=== PATIENT | female | born 1980 | race Caucasian/White ===

== ENCOUNTER 2019-08-25 10:24 | Outpatient (CLI) | payer OTHER, SELFPAY ==
--- NOTE | ~2019-08-25 | US_ITS ---
EXAMINATION: US abdomen complete DATE: 08/25/2019 11:36 INDICATION: Generalized abdominal tenderness. TECHNIQUE: Multiple grayscale and Doppler ultrasound images of the abdomen were obtained. COMPARISON: None FINDINGS: Abdominal aorta is normal in caliber. Inferior vena cava is normal. The visualized portions of the head and body of pancreas are normal. The liver is normal without focal lesion. There is norm al flow in main portal vein. The gallbladder is normal in size and contains gallstones. No gallbladde r wall thickening. There was a positive sonographic Balderas sign. The common duct is normal and measur es 4 mm. The kidneys are normal in size. The spleen is normal in size. IMPRESSION: 1. Cholelithiasis and positive sonographic Balderas sign, but no gallbladder wall thickening or gallbla dder distention to suggest acute cholecystitis. Reviewed, dictated and finalized at location A. IMPRESSION: 1. Cholelithiasis and positive sonographic Balderas sign, but no gallbladder wall thickening or gallbladder distention to suggest acute cholecystitis.
[2019-08-25 10:40] LABS: Basophils Absolute Auto 0.02 K/mm3 (0.00-0.10); Basophils Percent Auto 0.4 % (0.0-1.0); Eosinophils Absolute Auto 0.11 K/mm3 (0.02-0.50); Hematocrit 39.1 % (35.0-49.0); Hemoglobin 12.5 g/dL (12.0-15.0); Immature Granulocyte Absolute 0.01 K/mm3 (0.00-0.00); Immature Granulocyte Percent A 0.2 % (0.0-0.0); Lymphocytes Absolute Auto 2.61 K/mm3 (1.10-4.50); Lymphocytes Percent Auto 47.5 % (18.0-42.0); Mean Corpuscular Volume 81.5 fL (78.0-102.0); Mean Platelet Volume 10.3 fl (9.2-11.8); Monocytes Absolute Auto 0.27 K/mm3 (0.10-0.90); Monocytes Percent Auto 4.9 % (2.0-11.0); Neutrophils Absolute Auto 2.5 K/mm3 (1.7-7.2); Platelet Count Result 207 K/mm3 (150-420); Red Cell Distribution Width 14.6 % (11.6-14.4); White Blood Count 5.5 K/mm3 (4.8-10.8)
[2019-08-25 10:42] LABS: Add Urine Microscopic? NO; Appearance Urine Clear (Clear); Bilirubin Urine Negative (Negative); Blood Urine Negative (Negative); Color Urine Yellow (Yellow); Glucose Urine UA Negative (Negative); Ketones Urine Negative (Negative); Leukocyte Esterase Ur Negative (Negative); Nitrate Urine Negative (Negative); Protein Urine Negative (Negative); pH Urine 6.5 (5.0-8.0)
[2019-08-25 10:45] LABS: Urine Pregnancy Test Negative
[2019-08-25 10:46] LABS: Pregnancy On Board Control Positive
[2019-08-25 10:56] LABS: Alanine Aminotransferase 17 U/L (14-59); Albumin Level 3.8 g/dL (3.4-5.0); Alkaline Phosphatase 67 U/L (46-116); Amylase 59 U/L (25-115); Anion Gap 10.7 mmol/L (7-16); Aspartate Amino Transferase 12 U/L (15-37); Bilirubin,Total 0.3 mg/dL (0.00-1.00); Blood Urea Nitrogen 8 mg/dL (7-18); Calcium 8.6 mg/dL (8.5-10.1); Carbon Dioxide 29 mmol/L (21-32); Chloride 106 mmol/L (98-108); Estimated Glomerular Filt Rate > 60; Glucose 95 mg/dL (70-99); Lipase 116 U/L (73-393); Osmolality Calculated 292 mOsm/kg (285-295); Potassium 3.7 mmol/L (3.5-5.1); Sodium 142 mmol/L (136-145)
== END 2019-08-25 10:25 | disposition home or self-care (01) ==
PROVIDERS: PCP Family Medicine; Visit Provider Family Medicine
DX: R10.817 Generalized abdominal tenderness (principal)
CPT/HCPCS: 36415; 76700; 80053; 81003; 81025; 82150; 83690; 85025

== ENCOUNTER 2019-11-10 06:57 | Emergency (ER) | payer OTHER, SELFPAY ==
--- NOTE | ~2019-11-10 | US_ITS ---
EXAMINATION: US right upper quadrant DATE: 11/10/2019 09:39 INDICATION: Pancreatitis. Epigastric abdominal pain. TECHNIQUE: Multiple grayscale and Doppler images of the abdomen right upper quadrant were obtained (b y a technologist who performed the scan) and subsequently reviewed. Comparison is made to prior exami nation from 08/25/2019. FINDINGS: The pancreatic head and body are normal in appearance. The pancreatic tail is not visualized. Please note uncomplicated pancreatitis typically does not have ultrasound findings. The liver has normal ec hogenicity and contour. There are no focal liver lesions identified. There is no evidence of intra hepatic biliary duct dilation. Portal venous flow was seen in the hepatopedal, normal direction and has normal Doppler waveform. No right-sided hydronephrosis. Common bile duct measures 6 mm, which is normal. The gallbladder wall is normal in thickness, with ex pected amount of distention. No sonographic evidence of pericholecystic fluid. There is cholelithia sis. Technologist performing exam reports patient did not demonstrate sonographic Balderas's sign. P paulina note that this sign is less reliable in patients who have received pain medication. IMPRESSION: 1. Cholelithiasis. Reviewed, dictated and finalized at location A. IMPRESSION: 1. Cholelithiasis.
[2019-11-10 07:13] VITALS: BP 146/75; PULSE 74; RESP 20; TEMP 36.5; O2SAT 100
--- NOTE | 2019-11-10 07:19 | ECG_ITS ---
Measurements Intervals [place] Rate: 56 P: -11 [place]: 149 QRS: 16 QRSD: 105 T: 27 QT: 440 QTc: 427 Interpretive Statements SINUS BRADYCARDIA BORDERLINE ECG Electronically Signed On 11-10-2019 8:48:00 CDT by Alexander Deleon D.O.
--- NOTE | 2019-11-10 07:19 | ED.ABDPAIN ---
HPI - Abdominal Pain General Chief Complaint: Abdominal Pain Stated Complaint: body aches vomitting Time Seen by Provider: 11/10/19 07:19 Source: patient Mode of arrival: ambulatory Limitations: no limitations History of Present Illness HPI narrative: 39-year-old woman comes in today complaining 5 days of postprandial nausea, vomiting and epigastric pain. Between episodes she is pain-free. She states the pain starts about 1/2 hour after she eats or drinks, even coffee. She denies diarrhea, black stools, bloody stools, dysuria, hematuria, and fever. Patient states that she has had no blood in her vomitus. She has been able to keep anything down for the last several days. She states that she was seen by her doctor few months ago and told that she had gallstones. She denies NSAID use. MD elicited complaint: abdominal pain Pertinent past history: other ( Gallstones) Onset (ago): day(s) (5) Pain Consistency: intermittent Location: epigastric Severity: severe Quality: sharp Radiation: none Migration to: no migration Exacerbating factors: eating Relieving factors: nothing Associated symptoms: nausea and vomiting Treatments prior to arrival: other ( Tylenol) Related Data Date of Last Menstrual Period: 11/10/19 Home Medications Medication Instructions Recorded Confirmed No Home Medications 11/10/19 11/10/19 Allergies Allergy/AdvReac Type Severity Reaction Status Date / Time codeine Allergy Mild Verified 12/04/12 15:31 Review of Systems Constitutional: Constitutional: Denies chills, Denies fever(s) and Denies weakness Eyes: Eyes: Denies change in vision and Denies photophobia ENT: Denies dysphagia, Denies nasal congestion and Reports sore throat Cardiovascular: Cardiovascular: Denies chest pain and Denies radiating jaw, neck or arm pain Respiratory: Respiratory: Denies cough, Denies dyspnea and Denies wheezing Gastrointestinal: Gastrointestinal: Reports as per HPI Genitourinary: Genitourinary: Denies hematuria, Denies nocturia and Denies dysuria Musculoskeletal: Musculoskeletal: Denies arthralgias and Denies joint swelling Integumentary/Breasts: Skin/Breast: Denies pruritus, Denies erythema and Denies rash Neurologic: Denies vertigo, Denies dizziness and Denies syncope Psychiatric: Psychiatric: Denies anxiety and Denies depression Endocrine: Endocrine: Denies polydipsia and Denies polyuria Hematologic/Lymphatic: Hematologic/Lymphatic: Denies easy bleeding and Denies easy bruising Allergic/Immunologic: Allergic/Immunologic: Denies lip swelling and Denies wheezing [facility] Social History Social History Smoking status: Current every day smoker Alcohol intake: never Substance use: never Living arrangements: with family Exam Const: General: healthy appearing, no acute distress and alert Orientation/consciousness: patient oriented x3 Limitations: no limitations HENMT: Head: normal to inspection Ears: external ears normal, TM's normal bilaterally and EAC's normal Mouth: Yes moist mucous membranes Throat: posterior oropharynx normal Eyes: Conjunctivae: conjunctivae normal Pupils: Equal, round and reactive pupils present EOM: EOMs intact bilaterally Neck: Neck: normal visual inspection and no lymphadenopathy Resp: Effort & Inspection: normal respiratory effort and not labored Auscultation: clear to auscultation bilaterally, no rales, no rhonchi and no wheezes Cardio: Rate: regular rate Rhythm: regular rhythm Heart sounds: no murmurs GI: Inspection: non-distended GI Palp: Yes Soft to palpation, No Tenderness to palpation present (GI), No Guarding due to palpation present (GI), No Rigid due to palpation and No Palpable mass present Auscultation: normal bowel sounds Skin: General skin exam: normal color, no jaundice and no pallor Rashes: no rashes Neuro: General: patient oriented x3, moves all extremities, no focal motor deficits and
[2019-11-10 07:39] LABS: Basophils Absolute Auto 0.02 K/mm3 (0.00-0.10); Basophils Percent Auto 0.4 % (0.0-1.0); Eosinophils Absolute Auto 0.07 K/mm3 (0.02-0.50); Eosinophils Percent Auto 1.6 % (1.0-6.0); Hematocrit 37.3 % (35.0-49.0); Hemoglobin 11.7 g/dL (12.0-15.0); Immature Granulocyte Absolute 0.01 K/mm3 (0.00-0.00); Immature Granulocyte Percent A 0.2 % (0.0-0.0); Lymphocytes Absolute Auto 2.11 K/mm3 (1.10-4.50); Mean Corpuscular HGB Conc 31.4 g/dL (32.0-36.0); Mean Corpuscular Hemoglobin 25.6 pg (27.0-31.0); Mean Corpuscular Volume 81.6 fL (78.0-102.0); Mean Platelet Volume 10.3 fl (9.2-11.8); Monocytes Absolute Auto 0.23 K/mm3 (0.10-0.90); Monocytes Percent Auto 5.1 % (2.0-11.0); Neutrophils Absolute Auto 2.1 K/mm3 (1.7-7.2); Neutrophils Percent Auto 45.7 % (50.0-70.0); Platelet Count Result 224 K/mm3 (150-420); Red Blood Count 4.57 M/mm3 (4.20-5.40); Red Cell Distribution Width 15.5 % (11.6-14.4); White Blood Count 4.5 K/mm3 (4.8-10.8)
[2019-11-10 07:39] LABS: Add Urine Microscopic? YES; Appearance Urine Cloudy (Clear); Bilirubin Urine 1+ (Negative); Blood Urine 3+ (Negative); Color Urine Yellow (Yellow); Glucose Urine UA Negative (Negative); Ketones Urine 3+ (Negative); Leukocyte Esterase Ur Trace LEU/UL (Negative); Nitrate Urine Negative (Negative); Protein Urine 1+ (Negative); Specific Grav Ur >= 1.030 (1.010-1.020); pH Urine 5.5 (5.0-8.0)
[2019-11-10 07:44] LABS: Bacteria Urine 1+ /hpf; RBC Urine 51-75 /hpf (0-2); Squamous Epithelial Cell Urine Few /hpf (Few); WBC Urine 0-3 /hpf (0-3)
[2019-11-10] MEDS: SODIUM CHLORIDE 0.9% IV 1,000 ML 999 ML IV CONT (07:47)
[2019-11-10] MEDS: ONDANSETRON INJ 4 MG/2 ML VIAL IV PUSH (07:48)
[2019-11-10 07:52] LABS: Prothrombin Time 10.5 Seconds (9.64-11.0)
[2019-11-10 07:57] LABS: Lactic Acid Reflex 0.8 mmol/L (0.4-2.0)
[2019-11-10 08:01] LABS: Alanine Aminotransferase 375 U/L (14-59); Albumin Level 3.6 g/dL (3.4-5.0); Alkaline Phosphatase 234 U/L (46-116); Anion Gap 10.7 mmol/L (7-16); Aspartate Amino Transferase 120 U/L (15-37); Bilirubin,Total 0.7 mg/dL (0.00-1.00); Blood Urea Nitrogen 8 mg/dL (7-18); Calcium 8.4 mg/dL (8.5-10.1); Carbon Dioxide 28 mmol/L (21-32); Chloride 104 mmol/L (98-108); Estimated CRCL calculation 105 ml/min; Estimated Glomerular Filt Rate > 60; Glucose 75 mg/dL (70-99); Osmolality Calculated 285 mOsm/kg (285-295); Potassium 3.7 mmol/L (3.5-5.1); Sodium 139 mmol/L (136-145); Total Protein 6.8 g/dL (6.4-8.2)
[2019-11-10 08:08] LABS: Troponin I < 0.02 ng/mL (0.00-0.056)
[2019-11-10 08:15] LABS: Lipase 2145 U/L (73-393)
== END 2019-11-10 11:08 | disposition left against medical advice (07) ==
PROVIDERS: Emergency Provider Emergency Medicine; PCP Family Medicine
DX: K85.90 Acute pancreatitis without necrosis or infection, unspecified (principal); K75.9 Inflammatory liver disease, unspecified; R10.13 Epigastric pain; F17.200 Nicotine dependence, unspecified, uncomplicated
CPT/HCPCS: 36415; 76705; 80053; 81001; 83605; 83690; 84484; 85025; 85610; 85730; 93005; 96361; 96374; 99284; J2405; J7030

== ENCOUNTER 2019-11-11 09:10 | Outpatient (CLI) | payer OTHER, SELFPAY ==
[2019-11-11 09:19] LABS: Basophils Absolute Auto 0.03 K/mm3 (0.00-0.10); Basophils Percent Auto 0.6 % (0.0-1.0); Eosinophils Absolute Auto 0.11 K/mm3 (0.02-0.50); Eosinophils Percent Auto 2.3 % (1.0-6.0); Hematocrit 36.9 % (35.0-49.0); Hemoglobin 11.9 g/dL (12.0-15.0); Immature Granulocyte Absolute 0.01 K/mm3 (0.00-0.00); Immature Granulocyte Percent A 0.2 % (0.0-0.0); Lymphocytes Absolute Auto 2.45 K/mm3 (1.10-4.50); Lymphocytes Percent Auto 51.7 % (18.0-42.0); Mean Corpuscular HGB Conc 32.2 g/dL (32.0-36.0); Mean Corpuscular Hemoglobin 26.3 pg (27.0-31.0); Mean Corpuscular Volume 81.6 fL (78.0-102.0); Mean Platelet Volume 10.1 fl (9.2-11.8); Monocytes Absolute Auto 0.28 K/mm3 (0.10-0.90); Monocytes Percent Auto 5.9 % (2.0-11.0); Neutrophils Absolute Auto 1.9 K/mm3 (1.7-7.2); Neutrophils Percent Auto 39.3 % (50.0-70.0); Platelet Count Result 215 K/mm3 (150-420); Red Blood Count 4.52 M/mm3 (4.20-5.40); Red Cell Distribution Width 15.2 % (11.6-14.4); White Blood Count 4.7 K/mm3 (4.8-10.8)
[2019-11-11 09:35] LABS: Alanine Aminotransferase 234 U/L (14-59); Albumin Level 3.3 g/dL (3.4-5.0); Alkaline Phosphatase 189 U/L (46-116); Amylase 111 U/L (25-115); Aspartate Amino Transferase 49 U/L (15-37); Bilirubin,Total 0.3 mg/dL (0.00-1.00); Blood Urea Nitrogen 8 mg/dL (7-18); Calcium 7.8 mg/dL (8.5-10.1); Carbon Dioxide 27 mmol/L (21-32); Chloride 107 mmol/L (98-108); Estimated Glomerular Filt Rate > 60; Glucose 85 mg/dL (70-99); Lipase 437 U/L (73-393); Osmolality Calculated 291 mOsm/kg (285-295); Sodium 142 mmol/L (136-145); Total Protein 6.4 g/dL (6.4-8.2)
== END 2019-11-11 09:11 | disposition home or self-care (01) ==
LOC: CHSLAB 09:11
PROVIDERS: PCP Family Medicine; Visit Provider Family Medicine
DX: R10.817 Generalized abdominal tenderness (principal); R19.8 Other specified symptoms and signs involving the digestive system and abdomen
CPT/HCPCS: 36415; 80053; 82150; 83690; 85025

== ENCOUNTER 2020-03-04 07:01 | Outpatient (CLI) | payer OTHER, SELFPAY ==
[2020-03-06 11:16] LABS: SARS-CoV-2 RNA PCR Negative
== END 2020-03-04 07:02 | disposition home or self-care (01) ==
LOC: CHSLAB 07:04
PROVIDERS: PCP Family Medicine; Visit Provider Family Medicine
DX: Z20.828 Contact with and (suspected) exposure to other viral communicable diseases (principal)
CPT/HCPCS: 87635; C9803; U0003

== ENCOUNTER 2020-04-27 13:35 | Outpatient (CLI) | payer OTHER, SELFPAY ==
[2020-04-27 15:09] LABS: Influenza Control Valid (Valid)
[2020-04-28 20:00] LABS: SARS-CoV-2 RNA PCR Negative
== END 2020-04-27 13:36 | disposition home or self-care (01) ==
PROVIDERS: PCP Family Medicine; Visit Provider Family Medicine
DX: J00 Acute nasopharyngitis [common cold] (principal); Z20.828 Contact with and (suspected) exposure to other viral communicable diseases
CPT/HCPCS: 87081; 87635; 87804; 87880; C9803; U0003

== ENCOUNTER 2020-08-21 15:16 | Outpatient (CLI) | payer OTHER, SELFPAY ==
[2020-08-21 17:22] LABS: Influenza A QL RT-PCR Negative (Negative); Influenza B QL RT-PCR Negative (Negative); SARS-CoV-2 RNA PCR Negative (Negative)
== END 2020-08-21 15:17 | disposition home or self-care (01) ==
LOC: CHSLAB 15:18
PROVIDERS: PCP Family Medicine; Visit Provider Family Medicine
DX: J00 Acute nasopharyngitis [common cold] (principal); Z20.822 Contact with and (suspected) exposure to COVID-19
CPT/HCPCS: 87502; C9803; U0003; U0005

== ENCOUNTER 2020-09-26 10:24 | Outpatient (CLI) | payer OTHER, SELFPAY ==
[2020-09-26 12:53] LABS: SARS-CoV-2 RNA PCR Negative (Negative)
== END 2020-09-26 10:25 | disposition home or self-care (01) ==
LOC: CHSLAB 10:28
PROVIDERS: PCP Family Medicine; Visit Provider Family Medicine
DX: J00 Acute nasopharyngitis [common cold] (principal); Z20.822 Contact with and (suspected) exposure to COVID-19
CPT/HCPCS: 87081; 87880; C9803; U0003; U0005

== ENCOUNTER 2020-12-26 14:52 | Outpatient (CLI) | payer OTHER, SELFPAY ==
[2020-12-26 16:28] LABS: SARS-CoV-2 RNA PCR Negative (Negative)
== END 2020-12-26 14:53 | disposition home or self-care (01) ==
PROVIDERS: PCP Family Medicine; Visit Provider Nurse Practitioner Family
DX: Z20.822 Contact with and (suspected) exposure to COVID-19 (principal); J06.9 Acute upper respiratory infection, unspecified
CPT/HCPCS: C9803; U0003; U0005

== ENCOUNTER 2021-05-07 16:34 | Outpatient (CLI) | payer OTHER, SELFPAY ==
[2021-05-07 17:57] LABS: Influenza A QL RT-PCR Negative (Negative); Influenza B QL RT-PCR Negative (Negative); SARS-CoV-2 RNA PCR Negative (Negative)
== END 2021-05-07 16:35 | disposition home or self-care (01) ==
LOC: CHSLAB 16:42
PROVIDERS: PCP Family Medicine; Visit Provider Family Medicine
DX: R05.9 Cough, unspecified (principal); Z20.822 Contact with and (suspected) exposure to COVID-19
CPT/HCPCS: 87502; C9803; U0003; U0005

== ENCOUNTER 2021-05-28 10:36 | Outpatient (CLI) | payer OTHER, SELFPAY ==
[2021-05-28 12:42] LABS: Influenza Control Valid (Valid); SARS-CoV-2 Ag Positive (Negative)
== END 2021-05-28 10:37 | disposition home or self-care (01) ==
LOC: CHSLAB 10:38
PROVIDERS: PCP Family Medicine; Visit Provider Family Medicine
DX: U07.1 COVID-19 (principal); R50.9 Fever, unspecified
CPT/HCPCS: 87426; 87804; C9803

== ENCOUNTER 2022-04-17 13:09 | Outpatient (CLI) | payer OTHER, SELFPAY ==
--- NOTE | ~2022-04-17 | XR_ITS ---
XR_CERV2-3V_CR DATE: 04/17/2022 13:38 INDICATION: Pain and tingling of right shoulder TECHNIQUE: AP, open-mouth, lateral views COMPARISON: None FINDINGS: There is reversal of cervical curvature. This may be due to muscle spasm. There is slight c ervical levoscoliosis. C1 and C2 are normally aligned and the odontoid process is intact. There is approximately 1.5-2 mm anterolisthesis at C4-5. Otherwise the cervical vertebrae are normall y aligned. No fracture or dislocation or locked facet or prevertebral soft tissue swelling is detecte d. There is mild degenerative disease at C3-4 and C4-5 as well as C5-6 and C6-7, including anterior spur ring, most prominent at C5-6 and C6-7. There is uncovertebral joint spurring at C3-4, C4-5, C5-6 and C6-7, particularly at the latter level. IMPRESSION: Reversal cervical curvature and slight levoscoliosis Approximately 1.5 and 2 mm anterolisthesis at C4-5 Mild degenerative disc disease of mid and lower cervical spine Uncovertebral joint spurring at C3-4 through C6-7, particularly at C6-7 Reviewed, dictated and finalized at Location A. Reviewed, dictated and finalized at location B. ER LIFT OPERATOR
--- NOTE | ~2022-04-17 | XR_ITS ---
XR shoulder RT min 2V DATE: 04/17/2022 13:38 INDICATION: Right shoulder pain, tingling TECHNIQUE: 4 views COMPARISON: None FINDINGS: No fracture or dislocation, periosteal reaction or bone destruction of the right shoulder. There is mild degenerative spurring at the acromioclavicular joint. There is degenerative spurring of the thoracic spine, particularly in the right lower thoracic area. IMPRESSION: Mild degenerative change of the right acromioclavicular joint Thoracic spine degenerative spurring Reviewed, dictated and finalized at location B. ING RIGGER
== END 2022-04-17 13:10 | disposition home or self-care (01) ==
LOC: CHSIMG 13:11
PROVIDERS: PCP Family Medicine; Visit Provider Family Medicine
DX: M25.511 Pain in right shoulder (principal)
CPT/HCPCS: 72040; 73030

== ENCOUNTER 2022-09-25 13:21 | Emergency (ER) | payer OTHER, SELFPAY ==
--- NOTE | ~2022-09-25 | XR_ITS ---
EXAMINATION: XR ankle LT min 3V DATE: 09/25/2022 14:07 INDICATION: Left ankle pain. Fall. TECHNIQUE: 4 views of left ankle were obtained. COMPARISON: None. FINDINGS: Bone alignment is normal. No fracture. Joint spaces are normal. There are enthesophytes at the posterior and plantar aspects of calcaneal tuberosity. Ankle soft tissue swelling is noted. IMPRESSION: 1. No fracture. Reviewed, dictated and finalized at location A. IMPRESSION: 1. No fracture.
--- NOTE | ~2022-09-25 | XR_ITS ---
EXAMINATION: XR foot LT min 3V DATE: 09/25/2022 14:07 INDICATION: Left foot and ankle pain. Fall. TECHNIQUE: 4 views of left foot were obtained. COMPARISON: None. FINDINGS: Bone alignment is normal. No fracture. There is mild osteoarthritis of first tarsometatarsa l joint and first metatarsophalangeal joint. There are enthesophytes at the posterior and plantar asp ects of calcaneal tuberosity. IMPRESSION: 1. Mild polyarticular osteoarthritis. Reviewed, dictated and finalized at location A.
[2022-09-25 13:22] VITALS: BP 129/66; PULSE 80; RESP 20; TEMP 37.1; O2SAT 98
--- NOTE | 2022-09-25 13:48 | ED.LOWEXIN ---
HPI - Extremity Injury (Lower) General Chief Complaint: Extremity Injury, Lower Stated Complaint: L ankle injury Source: patient Mode of arrival: ambulatory Limitations: no limitations History of Present Illness HPI Narrative: 42-year-old female with no significant past medical history twisted her ankle last night. She presents with pain over the left lateral ankle. She is able to bear weight. No other injuries noted. MD complaint: ankle injury and foot injury Injury: Left: ankle and foot Type of Injury: eversion Place: home Severity: mild Relieving factors: immobilization Exacerbating factors: weight bearing Context: fall Other symptoms: none Related Data Allergies Allergy/AdvReac Type Severity Reaction Status Date / Time codeine Allergy Mild Verified 12/04/12 15:31 Review of Systems Review of Systems: All systems reviewed & are unremarkable except as noted in HPI and below Constitutional: Constitutional: Reports as per HPI and Reports no additional constitutional complaints Eyes: Eyes: Reports as per HPI and Reports no additional eye complaints ENT: Reports system reviewed and no additional complaints, except as documented and Reports as per HPI Cardiovascular: Cardiovascular: Reports as per HPI and Reports no additional cardiovascular complaints Respiratory: Respiratory: Reports as per HPI and Reports no additional respiratory complaints Gastrointestinal: Gastrointestinal: Reports as per HPI and Reports no additional gastrointestinal complaints Genitourinary: Genitourinary: Reports no additional female genitourinary complaints and Reports as per HPI Musculoskeletal: Musculoskeletal: Reports no additional musculoskeletal complaints and Reports as per HPI Comments: Left ankle pain Integumentary/Breasts: Skin/Breast: Reports system reviewed and no additional complaints, except as docu and Reports as per HPI Neurologic: Reports system reviewed and no additional complaints, except as documented and Reports as per HPI Psychiatric: Psychiatric: Reports no additional psychiatric complaints and Reports as per HPI Endocrine: Endocrine: Reports no additional endocrine complaints and Reports as per HPI Hematologic/Lymphatic: Hematologic/Lymphatic: Reports no additional hematologic/lymphatic complaints and Reports as per HPI Allergic/Immunologic: Allergic/Immunologic: Reports no additional allergic/immunologic complaints and Reports as per HPI PMFSH Social History Social History Smoking status: Current every day smoker Alcohol intake: never Substance use: never Living arrangements: with family Exam Const: General: healthy appearing and no acute distress Nutritional Appearance: well nourished Orientation/consciousness: patient oriented x3 Limitations: no limitations HENMT: Head: normal to inspection Ears: external ears normal Face/Nose/Sinus: Normal external nose present Face and sinus: normal facial exam Throat: posterior oropharynx normal Eyes: Conjunctivae: conjunctivae normal Pupils: Equal, round and reactive pupils present EOM: EOMs intact bilaterally Direct Ophthalmoscopy: no photophobia Neck: Neck: normal visual inspection, no lymphadenopathy and no meningeal signs Chest: Chest palpation & inspection: normal inspection of the chest Resp: Effort & Inspection: normal respiratory effort Auscultation: clear to auscultation bilaterally Cardio: Rate: regular rate Rhythm: regular rhythm GI: GI Palp: Yes Soft to palpation Auscultation: normal bowel sounds Other: no tenderness/ rigidity /rebound : General: Yes no CVA tenderness Back/Spine/Pelvis: Back: no CVA tenderness Skin: General skin exam: normal color Rashes: no rashes Wounds: no wounds Neuro: General: patient oriented x3, moves all extremities, no meningeal signs, no focal motor deficits and CN's II-XI intact bilaterally Cranial nerves: Yes Nystagmus not
--- NOTE | 2022-09-25 15:30 | PC.NURSE ---
wrist splint ordered incorrectly per dr herron, unable to discontinue order. several attempts per dr herron to discontinue.
== END 2022-09-25 15:21 | disposition home or self-care (01) ==
PROVIDERS: Emergency Provider Internal Medicine Critical Care Medicine; PCP Family Medicine
DX: S93.402A Sprain of unspecified ligament of left ankle, initial encounter (principal); S96.912A Strain of unspecified muscle and tendon at ankle and foot level, left foot, initial encounter; X50.0XXA Overexertion from strenuous movement or load, initial encounter
CPT/HCPCS: 29515; 73610; 73630; 99283; L4350

== ENCOUNTER 2024-07-14 13:15 | Outpatient (CLI) | payer OTHER, SELFPAY ==
--- OUTSIDE RECORDS SUMMARY | 2024-07-14 14:38 | XMS_ITS | Clinical Summary ---
Author Organization [facility] Address [address] [place] [id number] Care Team Providers Care Publications Editor Name Role Phone None, Provider MD Primary Care Provider Unavaila ble Allergies Active Allergy Reactions Criticality Noted Date Comments Acetaminophen-Codeine Rash Low 11/24/2019 Medications No known medications Family History Medical History Relation Comments Diabetes Father Diabetes Mother Relation Status Comments Father Alive Mother Alive Social History Tobacco Use Types Packs/Day Years Used Date Smoking Tobacco: Smoker, Current Status Unknown Cigarettes 1 20 Smokeless Tobacco: Never Alcohol Use Standard Drinks/Week Comments Not Currently 0 (1 standard drink = 0.6 oz pur e alcohol) Comments Unknown Sex and Gender Information Value Date Recorded Sex Assigned at Not on file Legal Sex Female 5:35 PM CDT Gender Identity Not on file Sexual Orientation Not on file Last Filed Vital Signs Vital Sign Reading Time Taken Comments Blood Pressure 125/77 11/30/2019 3:57 PM CDT Pulse 64 11/30/2019 3:57 PM CDT Temperature 36.6 C (97.9 F) 11/30/2019 1:55 PM CDT Respiratory Rate 16 11/30/2019 3:57 PM CDT Oxygen Saturation 95% 11/30/2019 3:57 PM CDT Inhaled Oxygen Concentration - - Weight 94.3 kg (208 lb) 11/24/2019 11:54 AM CDT Height 167.6 cm (5' 6 ) 11/24/2019 11:54 AM CDT Body Mass Index 33.57 11/24/2019 11:54 AM CDT Plan of Treatment Health Maintenance Due Date Last Done Comments Cervical Cancer Screening Pa p Smear (Age 30 to 64) Every 3 Years 1980 Annual Physical 07/22/1983 Hepatitis C 1998 DTaP, Tdap and Td Vaccines ( 1 - Tdap) 07/22/1999 Hepatitis B Vaccines (1 of 3 - 19+ 3-dose series) 07/22/1999 Cervical Cancer Screening Pa p with HPV Testing (Age 30 to 64) Every 5 Years 2010 Cervical Cancer Screening with HPV 2010 Mammogram Screening 2020 COVID-19 Vaccine ( - 2023-2 5 season) 2024 Influenza Adult (#1) 2024 HPV Vaccines Aged Out No longer eligi ble based on patient's age to complete this topic Meningococcal B Vaccine Aged Out No l onger eligible based on patient's age to complete this topic Meningococcal Vaccine Aged Out No nichelle shilo eligible based on patient's age to complete this topic Pneumococcal Vaccine: Pediat rics (0 to 5 Years) and At-Risk Patients (6 to 64 Years) Aged Out No longer eligible b ased on patient's age to complete this topic RSV Immunizations Under 20 Months Aged Out No longer eligible based on patient's age to complete this topic Care Teams Publications Editor Relationship Specialty Start Date End Date None, Provider, PCP - General 11/30/19
== END 2024-07-14 13:16 | disposition home or self-care (01) ==
LOC: CHSCARD 13:18
PROVIDERS: PCP Family Medicine; Visit Provider Nurse Practitioner Family
DX: R00.2 Palpitations (principal)
CPT/HCPCS: 93246

== ENCOUNTER 2025-03-15 15:55 | Outpatient (CLI) | payer OTHER, SELFPAY ==
--- NOTE | ~2025-03-15 | XR_ITS ---
XR_CERV2-3V_CR Indication: Numbness in fingers LT side, pain from neck to shoulder pain Comparison: None Findings: The vertebral heights are intact. No fracture or subluxation. Moderate loss of disc height C4-5 C5-6 and C6-7. Soft tissues unremarkable Impression: No acute abnormality. Reviewed, dictated and finalized at location P. P PRESS OPERATOR Impression: No acute abnormality.
--- NOTE | ~2025-03-15 | XR_ITS ---
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 Findings: No acute fracture or malalignment. No significant degenerative changes. Soft tissues unremarkable. Impression: No acute fracture or malalignment. Reviewed, dictated and finalized at location P. LRY RACKER Impression: No acute fracture or malalignment.
--- OUTSIDE RECORDS SUMMARY | 2025-03-15 16:49 | XMS_ITS | Clinical Summary ---
Author Organization [facility] Address [address] [place] [id number] Care Team Providers Care Devops Consultant Name Role Phone None, Provider MD Primary [...] 11:54 AM CDT Height 167.6 cm (5' 6) 11/24/2019 11:54 AM CDT Body Mass Index 33.57 11/24/2019 11:54 AM CDT Plan of Treatment Health Maintenance Due Date Last Done Comments Cervical Cancer Screening Pa p Smear (Age 30 to 64) Every 3 Years 1980 Annual Physical 07/22/1983 Hepatitis C 1998 DTaP, Tdap and Td Vaccines ( 1 - Tdap) 07/22/1999 Hepatitis B Vaccines (1 of 3 - 19+ 3-dose series) 07/22/1999 HPV Vaccines (1 - 3-dose SCD M series) 07/22/2007 Cervical Cancer Screening Pa p with HPV Testing (Age 30 to 64) Every 5 Years 2010 Cervical Cancer Screening with HPV 2010 Mammogram Screening 2020 COVID-19 Vaccine ( - 2024-2 6 season) 2025 Influenza Adult (#1) 2025 Hepatitis A Vaccines Aged Out No long er eligible based on patient's age to complete this topic Meningococcal B Vaccine Aged Out No l onger eligible based on patient's age to complete this topic Meningococcal Vaccine Aged Out No nichelle shilo eligible based on patient's age to complete this topic Pneumococcal Vaccine: Pediat rics (0 to 5 Years) and At-Risk Patients (6 to 49 Years) Aged Out No longer eligible b ased on patient's age to complete this topic RSV Immunizations Under 20 Months Aged Out No longer eligible based on patient's age to complete this topic Care Teams Devops Consultant Relationship Specialty Start Date End Date None, Provider, PCP - General 11/30/19
== END 2025-03-15 15:56 | disposition home or self-care (01) ==
LOC: CHSIMG 15:57
PROVIDERS: PCP Family Medicine; Visit Provider Family Medicine
DX: M25.512 Pain in left shoulder (principal); M54.2 Cervicalgia
CPT/HCPCS: 72040; 73030